=== PATIENT | female | born 1960 | race Caucasian/White ===

== ENCOUNTER 2022-07-28 10:18 | Day surgery (SDC) | payer OTHER ==
[2022-07-26 13:43] VITALS: BMI 23.6
[2022-07-28 11:29] LABS: Anion Gap 19 mmol/L (10-20); BUN (Urea Nitrogen) 25 mg/dL (9.8-20.1); Calc. Creatinine Clearance 52 mL/min (70-130); Carbon Dioxide 29 mmol/L (23-31); Estimated GFR 54; Glucose 93 mg/dL (80-115)
[2022-07-28 11:33] LABS: Potassium 2.9 mmol/L (3.5-5.1)
[2022-07-28 11:42] LABS: Chloride 92 mmol/L (98-107); Sodium 137 mmol/L (136-145)
[2022-07-28] MEDS ORDERED: Bupivacaine PF 0.5% 30 ML VIAL ONE (11:50)
[2022-07-28] MEDS ORDERED: Bupivacaine 0.25% HCL 30 ML VIAL ONE (11:50)
[2022-07-28] MEDS ORDERED: Sodium Chloride 0.9% 100 ML ONE (12:02)
[2022-07-28] MEDS ORDERED: CEFAZOLIN 2 GM VIAL ONE (12:02)
[2022-07-28] MEDS ORDERED: PROPOFOL 200 MG/20 ML VIAL ONE (12:11)
[2022-07-28] MEDS ORDERED: Glycopyrrolate 0.2 MG/ML 5 ML SYRINGE ONE (12:11)
[2022-07-28] MEDS ORDERED: Phenylephrine 10 MG/ML VIAL ONE (12:11)
[2022-07-28] MEDS ORDERED: Lidocaine 1% MPF 2 ML VIAL ONE (12:11)
[2022-07-28] MEDS ORDERED: Dexamethasone 20 MG/5 ML VIAL ONE (12:11)
[2022-07-28] MEDS ORDERED: Ketorolac Tromethamine 30 MG/ML VIAL ONE (12:11)
[2022-07-28] MEDS ORDERED: Ondansetron PF 4 MG/2 ML Vial ONE (12:11)
[2022-07-28] MEDS ORDERED: Lidocaine 1% (PF) 30 ML VIAL ONE ×2 (12:18→12:32)
[2022-07-28] MEDS ORDERED: Betamet Acet/Betamet Na Ph 30 MG/5 ML VIAL ONE (12:18)
[2022-07-28] MEDS ORDERED: EPINEPHrine 1 MG/ML AMP ONE (12:32)
[2022-07-28] MEDS ORDERED: fentaNYL Citrate/PF 100 MCG/2 ML SYRINGE ONE (12:43)
[2022-07-28] MEDS ORDERED: Fentanyl 100 MCG/2 ML VIAL ONE (14:04)
[2022-07-28] MEDS ORDERED: HYDROcodone/Acetaminophen 5/325 mg Tablet ONE (14:26)
== END 2022-07-28 15:18 | disposition home or self-care (01) ==
LOC: SDC 10:18
PROVIDERS: ATTEND Surgery Surgery of the Hand
PROC: 3E0U33Z Introduction of Anti-inflammatory into Joints, Percutaneous Approach (ICD-10-PCS; principal; 2022-07-28)
PROC: 0RUT0JZ Supplement Left Carpometacarpal Joint with Synthetic Substitute, Open Approach (ICD-10-PCS; principal; 2022-07-28)
DX: M18.12 Unilateral primary osteoarthritis of first carpometacarpal joint, left hand (principal); M19.032 Primary osteoarthritis, left wrist; M75.41 Impingement syndrome of right shoulder; K31.84 Gastroparesis; Z79.899 Other long term (current) drug therapy; Z88.5 Allergy status to narcotic agent; Z88.8 Allergy status to other drugs, medicaments and biological substances
CPT/HCPCS: 76000; 80048; C1713; J0171; J0690; J0702; J1100; J1885; J2001; J2370; J2405; J2704; J3010; J3490; S0020